=== PATIENT | male | born 1995 | race African-American/Black ===

== ENCOUNTER 2020-12-25 10:02 | Emergency (ER) | payer MEDICAID ==
[~2020-12-25] VITALS: Ht 180.3 cm; Wt 88.0 kg
[2020-12-25] MEDS ORDERED: ONDANSETRON 2MG/ML, 2ML IVPush ONE (10:30)
[2020-12-25] MEDS ORDERED: SODIUM CHLORIDE 0.9% 1,000ML IVBOLUS ONE (10:30)
--- NOTE | 2020-12-25 10:43 | NUR ---
pt back from imaging, vitals remain stable, iv fluids infusing per MD orders, urinal at bedside for UA collection when able. waiting for results.
[2020-12-25 11:15] LABS: BASOPHILS % (AUTO) 1 % (0-1); EOSINOPHILS % (AUTO) 0 % (1-7); LYMPHOCYTES % (AUTO) 11 % (22-44); MEAN CORPUSCULAR HEMOGLOBIN 26.9 pg (27.5-34.5); MEAN PLATELET VOLUME 9.6 fL (7.4-10.4); MONOCYTES % (AUTO) 11 % (2-9); NEUTROPHILS % (AUTO) 77 % (42-75); PLATELET COUNT 100 x10^3/uL (130-400); RED BLOOD COUNT 5.78 x10^6/uL (4.38-5.82)
[2020-12-25 11:16] LABS: MD NO
[2020-12-25 11:19] LABS: ALANINE AMINOTRANSFERASE 109 U/L (12-78); ANION GAP 8 mmol/L (5-15); CALCIUM 8.6 mg/dL (8.5-10.1); CHLORIDE 97 mmol/L (98-107); CREATININE 1.14 mg/dL (0.7-1.3)
[2020-12-25 11:21] LABS: ALKALINE PHOSPHATASE 117 U/L (45-117); TOTAL PROTEIN 7.2 g/dL (6.4-8.2)
[2020-12-25 12:03] VITALS: BP 134/78
--- NOTE | 2020-12-25 12:05 | NUR ---
PT DISCHARGED TO HOME, VITALS STABLE, PIV FLUIDS COMPLETE AND IV REMOVED. EDUCATION PROVIDED. PT AMBULATES W/ STEADY GAIT TO FRONT LOBBY WITH PERSONAL BELONGINGS.
== END 2020-12-25 12:29 | disposition home or self-care (01) ==
LOC: ED 12:20
DX: K52.9 Noninfective gastroenteritis and colitis, unspecified (principal); Z20.822 Contact with and (suspected) exposure to COVID-19; J06.9 Acute upper respiratory infection, unspecified; R11.2 Nausea with vomiting, unspecified
CPT/HCPCS: 36415; 74021; 80053; 83690; 85025; 96360; 99284; J7030; U0003

== ENCOUNTER 2020-12-27 18:02 | Emergency (ER) | payer MEDICAID ==
[~2020-12-27] VITALS: Ht 180.3 cm; Wt 85.0 kg
--- NOTE | 2020-12-27 18:12 | NUR ---
PT BIB [facility]. PT CALLED 911 FOR N/V AND CHEST PAIN X6 DAYS. PT WAS JUST IN ER FOR SAME COMPLAINT 3 DAYS AGO. PT STATED THAT HE USED METHAMPHETAMINE 12 HOURS AGO. PT DROWSY, BUT EASILY AROUSABLE. PT DENIES ANY SOB, FEVER OR DIARRHEA.
[2020-12-27] MEDS ORDERED: ONDANSETRON ODT 4 MG ONE (18:25)
[2020-12-27] MEDS ORDERED: PROMETHAZINE 25 MG/ML, 1ML ONE (18:25)
[2020-12-27] MEDS ORDERED: DICYCLOMINE 20 MG TABLET ONE ×2 (18:25→19:08)
[2020-12-27] MEDS ORDERED: DICYCLOMINE 10 MG CAPSULE PO ONE (18:30)
[2020-12-27] MEDS ORDERED: PROMETHAZINE 25 MG/ML, 1ML IM ONE (18:30)
[2020-12-27] MEDS ORDERED: ONDANSETRON ODT 4 MG PO ONE (18:30)
[2020-12-27] MEDS ORDERED: PLEASE ENTER ALLERGIES MC SCH (18:30)
[2020-12-27 18:43] LABS: MEAN CORPUSCULAR HEMOGLOBIN 26.7 pg (27.5-34.5); MEAN CORPUSCULAR HGB CONC 32.9 g/dL (33.2-36.2); MEAN PLATELET VOLUME 9.5 fL (7.4-10.4); PLATELET COUNT 110 x10^3/uL (130-400); RED BLOOD COUNT 5.88 x10^6/uL (4.38-5.82); RED CELL DISTRIBUTION WIDTH 14.4 % (9.4-14.8)
--- NOTE | 2020-12-27 18:48 | NUR ---
REPORT TO [facility]
--- NOTE | 2020-12-27 18:49 | NUR ---
report recieved from daina fermin
[2020-12-27 18:54] LABS: ALBUMIN 3.2 g/dL (3.4-5.0); ANION GAP 7 mmol/L (5-15); CALCIUM 8.7 mg/dL (8.5-10.1); CHLORIDE 98 mmol/L (98-107)
[2020-12-27 18:58] LABS: ALANINE AMINOTRANSFERASE 296 U/L (12-78); ALKALINE PHOSPHATASE 218 U/L (45-117); BILIRUBIN,TOTAL 0.9 mg/dL (0.2-1.0); CREATININE 1.11 mg/dL (0.7-1.3); TOTAL PROTEIN 7.5 g/dL (6.4-8.2)
[2020-12-27 19:09] LABS: MD YES
[2020-12-27 19:17] LABS: BAND#(MANUAL) 0.34 x10^3/uL; BANDS%(MANUAL) 7 % (0-7); BASOS#(MANUAL) 0.05 x10^3/uL (0-0.1); BASOS% (MANUAL) 1 % (0-1); EOS#(MANUAL) 0.05 x10^3/uL (0.0-0.4); EOS% (MANUAL) 1 % (1-7); LYMPH#(MANUAL) 1.23 x10^3/uL (1-3.4); LYMPHS% (MANUAL) 25 % (22-44); MONOS#(MANUAL) 0.98 x10^3/uL (0.3-2.7); MONOS% (MANUAL) 20 % (2-9); REACTIVE LYMPHS # (MANUAL) 0.69 x10^3/uL (0-0); REACTIVE LYMPHS % (MANUAL) 14 % (0-0); SEG#(MANUAL) 1.57 x10^3/uL (1.8-6.8); SEGS% (MANUAL) 32 % (42-75)
[2020-12-27 19:18] LABS: <PLATELET ESTIMATE> DECREASED; <PLT MORPHOLOGY> NORMAL PLT MORPH; <RBC MORPHOLOGY> NORMAL
--- NOTE | 2020-12-27 20:56 | NUR ---
ultrasound at bedside
--- NOTE | 2020-12-27 21:43 | NUR ---
PT RESTING IN [facility], DENIES ANY PAIN AT THIS TIME, MONITORS IN PLACE, AWAITING US READ
[2020-12-27 22:45] VITALS: BP 112/68
== END 2020-12-27 23:12 | disposition home or self-care (01) ==
LOC: ED 18:32
DX: R10.13 Epigastric pain (principal); R11.2 Nausea with vomiting, unspecified; R94.5 Abnormal results of liver function studies; F17.200 Nicotine dependence, unspecified, uncomplicated
CPT/HCPCS: 36415; 76700; 80053; 80299; 80320; 83690; 85025; 93005; 96372; 99285; J2550; Q0162; G0480

== ENCOUNTER 2021-04-10 19:22 | Emergency (ER) | payer MEDICAID ==
[~2021-04-10] VITALS: Ht 180.3 cm; Wt 96.0 kg
[2021-04-10 23:22] LABS: ALANINE AMINOTRANSFERASE 34 U/L (12-78); ALBUMIN 3.3 g/dL (3.4-5.0); ANION GAP 7 mmol/L (5-15); CALCIUM 9.1 mg/dL (8.5-10.1); CHLORIDE 101 mmol/L (98-107); CREATININE 1.05 mg/dL (0.7-1.3)
[2021-04-10 23:24] LABS: BASOPHILS % (AUTO) 0 % (0-1); EOSINOPHILS % (AUTO) 0 % (1-7); LYMPHOCYTES % (AUTO) 8 % (22-44); MEAN CORPUSCULAR HGB CONC 32.5 g/dL (33.2-36.2); MEAN PLATELET VOLUME 9.5 fL (7.4-10.4); MONOCYTES % (AUTO) 7 % (2-9); NEUTROPHILS % (AUTO) 84 % (42-75); PLATELET COUNT 162 x10^3/uL (130-400); RED BLOOD COUNT 5.99 x10^6/uL (4.38-5.82); RED CELL DISTRIBUTION WIDTH 14.5 % (9.4-14.8)
[2021-04-10 23:25] LABS: ALKALINE PHOSPHATASE 84 U/L (45-117); BILIRUBIN,TOTAL 0.6 mg/dL (0.2-1.0); TOTAL PROTEIN 8.7 g/dL (6.4-8.2)
--- NOTE | 2021-04-11 01:20 | NUR ---
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
--- NOTE | 2021-04-11 01:25 | NUR ---
PT WHEELED BACK FROM LOBBY AT THIS TIME.
[2021-04-11 01:26] VITALS: BP 135/79
[2021-04-11] MEDS ORDERED: SULFAMETH./TRIMETHOPRIM DS 800MG/160MG TABLET ONE (01:51)
[2021-04-11] MEDS ORDERED: CEFTRIAXONE 1,000 MG ONE (01:51)
[2021-04-11] MEDS ORDERED: KETOROLAC 30 MG/1 ML ONE (01:51)
[2021-04-11] MEDS ORDERED: LIDOCAINE-MPF 2% ,5ML ONE (01:52)
[2021-04-11] MEDS ORDERED: KETOROLAC 30 MG/1 ML IVPush ONE (02:00)
[2021-04-11] MEDS ORDERED: SULFAMETH./TRIMETHOPRIM DS 800MG/160MG TABLET PO ONE (02:00)
[2021-04-11] MEDS ORDERED: CEFTRIAXONE 1,000 MG in DEXTROSE 5% 50 ML IVPB ONE (02:00)
[2021-04-11] MEDS ORDERED: LIDOCAINE PF 2%, 5ML SQ ONE (02:00)
[2021-04-11] MEDS ORDERED: LIDOCAINE-MPF 1%, 5ML INFIL ONE (02:00)
== END 2021-04-11 03:21 | disposition home or self-care (01) ==
LOC: ED 04-11 03:04
DX: L03.115 Cellulitis of right lower limb (principal); M70.41 Prepatellar bursitis, right knee; F17.200 Nicotine dependence, unspecified, uncomplicated
CPT/HCPCS: 10060; 36415; 73564; 80053; 85025; 87040; 93971; 96365; 96375; 99285; J0696; J1885